=== PATIENT | male | born 2005 | race Hispanic/Latino ===

== ENCOUNTER 2024-01-03 20:16 | Emergency (ER) | payer SELFPAY ==
[2024-01-03 21:12] LABS: Bilirubin Negative (Negative); Blood, Urine Trace (Negative); Clarity Clear (Clear); Glucose, Urine (Dipstick) Negative (Negative); Ketone, Urine Negative (Negative); Leukocyte Negative (Negative); Nitrite Negative (Negative); Protein, Urine (Dipstick) Negative (Neg-Trace); Urobilinogen 0.2 mg/dL (Less than 2)
[2024-01-03 21:13] LABS: CAUTI Indications for Culture Dysuria,urgency,freq; Specific Gravity, Urine 1.026 (1.002-1.036); Squamous Epithelial 0-3 HPF (0-3); WBC/HPF None Seen HPF (0-3)
[2024-01-03 21:14] LABS: RBC/HPF None Seen HPF (0-3); Urine Culture Reflex No No
[2024-01-03] MEDS ORDERED: Ondansetron ODT 4 MG TAB ONE (21:52)
[2024-01-03] MEDS ORDERED: Acetaminophen 500 MG TAB ONE (21:52)
[2024-01-06 21:37] LABS: Chlam.trachomatis by PCR,Urine Not Detected (NotDetected); GC N.gonorrhoeae PCR,UrineVOID Not Detected (NotDetected)
== END 2024-01-03 22:38 | disposition short-term general hospital (02) ==
LOC: MADERS 20:16
DX: N50.812 Left testicular pain (principal)
CPT/HCPCS: 81001; 87491; 87591; 99284; Q0162